=== PATIENT | female | born 1980 | race Caucasian/White ===

== ENCOUNTER 2022-08-02 09:45 | Emergency (ER) | payer OTHER, SELFPAY ==
[2022-08-02] VITALS (17 sets, daily range): BP systolic 94–122; BP diastolic 64–80; PULSE 76–97; RESP 18; TEMP 37; O2SAT 97–99; BMI 21.6
--- NOTE | 2022-08-02 10:25 | ED.CHESTPAIN ---
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 Patient has had ongoing chest pain since July 22. She states that morning she awoke with chest pain and she shows this to be the left anterior upper chest wall. She states that pain was present all day and that she tried to hydrate. After that she had pain on and off and occasionally at night. It does not appear to be associated we activity. Walking does not appear to bring on the pain and she does not really recognize that stress or activity makes it worse. She notes that taking a deep breath does not seem to affect it. She states that the pain has returned intermittent. She notes that in the OR they actually put her on a monitor and did not see anything unusual except perhaps 1 of the nurses thought her T-waves were flattened. Patient has not had any recent travel, calf tenderness or swelling, history of DVT, shortness of breath cough cold congestion or fever. Denies as she has IUD in place. Does note that she has had a small amount of drainage down the back of her throat but it has not been sore and she has not had a cough. She cannot recall any injury or excessive work of late. When pain occurs patient does not have relief with leaning forward. Again, does not appear to be related to activity and it is random in occurrence. Related Data Allergies Allergy/AdvReac Type Severity Reaction Status Date / Time No Known Drug Allergies Allergy Verified 08/02/22 09:49 Review of Systems Status of ROS Reports: 10 or more systems reviewed and unremarkable except as noted in History and below Const Denies: fever or chills Eyes Denies: change in vision ENMT Denies: throat pain, throat swelling or hoarseness Cardio Reports: chest pain; Denies: palpitations, edema, swelling of feet/ankles, lightheadedness or shortness of breath with exertion Resp Denies: shortness of breath GI Denies: abdominal pain, nausea, vomiting or diarrhea Denies: painful urination or urinary frequency Musculo Denies: back pain Integ/Breast Denies: rash or itching Neuro Denies: headache, numbness in extremities or weakness in extremities Allergy/Immuno Denies: throat swelling [facility] Social History Smoking Status: Never smoker Do you use any of these nicotine containing products: None Second hand tobacco smoke exposure: No How often do you have a drink containing alcohol: monthly or less How many standard drinks containing alcohol do you have on a typical day: 1 or 2 How often do you have six or more drinks on one occasion: Never AUDIT-C Alcohol total score: 1 Non-prescribed substance use: denies use service: No Exam Narrative Exam Narrative: Patient is very pleasant. She is comfortably reading a book in room 8. Alert and oriented. Nontoxic in appearance. EOM is full it face symmetrical. Speech is normal without slurring. Neck is supple no lymphadenopathy. Heart with regular rate and rhythm. I did not auscultate murmur or rub. I do have patient lean forward and there is no evidence of a rub. Abdomen is soft nontender. Palpation over left lateral chest wall upper lateral pectoral muscle does healed mild tenderness with palpation. No pain with palpation down sternum. No CVA tenderness with percussion. Palpitation down thoracic and lumbar spine does not yield tenderness. I did try to push on ribcage and it did not increase discomfort. Lower extremities without edema. Calves are without any tenderness. Const Vital Signs, click to edit/add: Vital Signs - 24 hr 08/02/22 09:49 08/02/22 10:59 08/02/22 11:00 Temperature 98.6 F Pulse Rate 78 77 Pulse Rate [Pulse Oximeter] 97 Respiratory Rate 18 Blood Pressure Blood Pressure [Left Upper Arm] 122/80 Pulse Oximetry 97 98 98 Oxygen Delivery Method Room Air 08/02/22 11:01 08/02/22 11:02 08/02/22 11:30 Temperature Pulse Rate 80 76 83 Pulse Rate [Pulse Oximeter] Respiratory Rate Blood Pressure 105/64 Blood Pressure [Left Upper Arm] Pulse Oximetry 99 99 99 Oxygen Delivery Method 08/02/22 11:31 08/02/22 11:32 08/02/22 12:00 Temperature Pulse Rate 77 79 82 Pulse Rate [Pulse Oximeter] Respiratory Rate Blood Pressure 116/74 Blood Pressure [Left Upper Arm] Pulse Oximetry 99 99 99 Oxygen Delivery Method 08/02/22 12:01 08/02/22 12:02 08/02/22 12:30 Temperature Pulse Rate 83 81 76 Pulse Rate [Pulse Oximeter] Respiratory Rate Blood Pressure 106/66 Blood Pressure [Left Upper Arm] Pulse Oximetry 99 99 97 Oxygen Delivery Method 08/02/22 12:31 08/02/22 13:00 08/02/22 13:01 Temperature Pulse Rate 82 80 89 Pulse Rate [Pulse Oximeter] Respiratory Rate Blood Pressure 98/65 94/75 Blood Pressure [Left Upper Arm] Pulse Oximetry 97 97 97 Oxygen Delivery Method 08/02/22 13:30 08/02/22 13:31 Temperature Pulse Rate 81 79 Pulse Rate [Pulse Oximeter] Respiratory Rate Blood Pressure 102/67 Blood Pressure [Left Upper Arm] Pulse Oximetry 97 98 Oxygen Delivery Method Course Course Hospital Course: Patient is presenting with intermittent left anterior chest wall pain over the past 2 weeks. Does not appear to be related to activity and she cannot do anything to bring it on. At this time differential diagnosis includes but is not limited to PE, chest wall pain, angina, pneumonia, muscular strain, anxiety. We will order chest x-ray, D-dimer, CBC, comprehensive panel, troponin, CRP, urinalysis and an EKG. Will keep patient on color television console monitor at this time Reevaluation(s) Reevaluation #1: During patient's stay she had no unusual rhythms noted on color television console monitor. I did inform her that her labs are coming back as normal and that initial troponin and EKG are reassuring. Will try 1 dose Toradol 15 mg IV Reevaluation #2: Patient does not think she is markedly improved. She continues to be reading her book and resting comfortably. Second EKG and troponin are also negative. Re-examination shows that she does have tenderness with palpation in the upper chest wall and when I extend her arm she does have a stretching sensation across that area. Vital Signs Vital signs: Initial Vital Signs Temperature 98.6 F 08/02/22 09:49 Temperature Source Temporal Artery Scan 08/02/22 09:49 Pulse Rate 97 08/02/22 09:49 Pulse Rhythm 08/02/22 09:49 Respiratory Rate 18 08/02/22 09:49 Blood Pressure 122/80 08/02/22 09:49 Blood Pressure Mean 94 08/02/22 09:49 Blood Pressure Position Supine 08/02/22 09:49 Pulse Oximetry 97 08/02/22 09:49 Oxygen Delivery Method 08/02/22 09:49 Vital Signs Temperature 98.6 F 08/02/22 09:49 Pulse Rate 97 08/02/22 09:49 Respiratory Rate 18 08/02/22 09:49 Blood Pressure 122/80 08/02/22 09:49 Pulse Oximetry 97 08/02/22 09:49 Oxygen Delivery Method 08/02/22 09:49 Temperature 98.6 F 08/02/22 09:49 Pulse Rate 79 08/02/22 13:31 Respiratory Rate 18 08/02/22 09:49 Blood Pressure 102/67 08/02/22 13:31 Pulse Oximetry 98 08/02/22 13:31 Oxygen Delivery Method 08/02/22 09:49 MDM - Chest Pain MDM Narrative Medical decision making narrative: 1. Chest wall pain-I believe this is likely muscular in nature. At this time no evidence of an MA, cardiac ischemia, injury, PE with a negative D-dimer, pneumonia with a reassuring chest x-ray. Suggest stretching and icing of this area as needed. In spite of my very low suspicion of cardiac pain I would ask patient to follow-up with her primary MD to pursue a stress echo at this time. 2. Disposition-return as needed for worsening symptoms. Medical Records Data Attestation: I reviewed the patient's medical records. Lab Data Attestation: I reviewed the patient's lab results. Labs: Lab Results 08/02/22 08/02/22 08/02/22 Range/Units 10:46 10:50 10:50 WBC 7.43 (4.50-11.00) K/uL RBC 4.68 (4.00-5.20) m/uL Hgb 14.9 (12.0-16.0) gm/dL Hct 43.9 (33.0-51.0) % MCV 94 (80-100) fL MCH 32 (26-34) pg MCHC 34 (32-36) gm/dL RDW Coeff of Shama 12.0 (11.5-15.5) % Plt Count 246 (140-440) K/uL Neut % (Auto) 52.6 (42.0-72.0) % Lymph % (Auto) 35.7 (20-44) % [place] % (Auto) 9.0 (0.0-11.0) % Eos % (Auto) 2.0 (0.0-7.0) % Baso % (Auto) 0.7 (0.0-3.0) % Neut # (Auto) 3.91 (1.7-7.0) K/uL Lymph # (Auto) 2.65 (0.90-2.90) K/uL [place] # (Auto) 0.70 (0.00-0.90) K/UL Eos # (Auto) 0.15 (0.00-0.50) K/uL Baso # (Auto) 0.05 (0.00-0.30) K/uL D-Dimer Quant (PE/DVT) (0.00-0.50) ug/ml Sodium 139 (135-149) mmol/L Potassium 3.9 (3.6-5.1) mmol/L Chloride 105 (96-114) mmol/L Carbon Dioxide 28 (20-32) mmol/L BUN 15 (5-24) mg/dL Creatinine 1.0 (0.5-1.5) mg/dL Estimated Creat Clear 73.45 Estimated GFR 73 ml/min Glucose 92 (60-115) mg/dL Calcium 9.2 (8.4-10.6) mg/dL Total Bilirubin 0.6 (0.1-1.5) mg/dL AST 21 (12-35) U/L ALT 16 (4-35) U/L Alkaline Phosphatase 94 (40-150) U/L Total Protein 8.2 (6.0-8.3) g/dL Albumin 4.6 (3.3-5.0) g/dL Urine Color Yellow (Yellow) Urine Appearance Clear (Clear) Urine pH 7.0 (5.0-8.5) Ur Specific Lynn 1.015 (1.000-1.030) Urine Protein Negative (Negative) Urine Glucose (UA) Negative (Negative) Urine Ketones Negative (Negative) Urine Blood Negative (Negative) Urine Nitrite Negative (Negative) Urine Bilirubin Negative (Negative) Urine Urobilinogen 0.2 (0.2-1.0) Ur Leukocyte Esterase Negative (Negative) Urine RBC 0-2 (0-2) Urine WBC 0-2 (0-5) Ur Squamous Epith Cells None (None-Few) Urine Bacteria None (None) Urine HCG, Qual Negative (Negative) SARS-CoV-2 (PCR) (Negative) Influenza Type A (PCR) (Negative) Influenza Type B (PCR) (Negative) POC Troponin I (0.01-0.04) ng/ml 08/02/22 08/02/22 08/02/22 Range/Units 10:50 10:50 10:50 WBC (4.50-11.00) K/uL RBC (4.00-5.20) m/uL Hgb (12.0-16.0) gm/dL Hct (33.0-51.0) % MCV (80-100) fL MCH (26-34) pg MCHC (32-36) gm/dL RDW Coeff of Shama (11.5-15.5) % Plt Count (140-440) K/uL Neut % (Auto) (42.0-72.0) % Lymph % (Auto) (20-44) % [place] % (Auto) (0.0-11.0) % Eos % (Auto) (0.0-7.0) % Baso % (Auto) (0.0-3.0) % Neut # (Auto) (1.7-7.0) K/uL Lymph # (Auto) (0.90-2.90) K/uL [place] # (Auto) (0.00-0.90) K/UL Eos # (Auto) (0.00-0.50) K/uL Baso # (Auto) (0.00-0.30) K/uL D-Dimer Quant (PE/DVT) < 0.27 (0.00-0.50) ug/ml Sodium (135-149) mmol/L Potassium (3.6-5.1) mmol/L Chloride (96-114) mmol/L Carbon Dioxide (20-32) mmol/L BUN (5-24) mg/dL Creatinine (0.5-1.5) mg/dL Estimated Creat Clear Estimated GFR ml/min Glucose (60-115) mg/dL Calcium (8.4-10.6) mg/dL Total Bilirubin (0.1-1.5) mg/dL AST (12-35) U/L ALT (4-35) U/L Alkaline Phosphatase (40-150) U/L Total Protein (6.0-8.3) g/dL Albumin (3.3-5.0) g/dL Urine Color (Yellow) Urine Appearance (Clear) Urine pH (5.0-8.5) Ur Specific Lynn (1.000-1.030) Urine Protein (Negative) Urine Glucose (UA) (Negative) Urine Ketones (Negative) Urine Blood (Negative) Urine Nitrite (Negative) Urine Bilirubin (Negative) Urine Urobilinogen (0.2-1.0) Ur Leukocyte Esterase (Negative) Urine RBC (0-2) Urine WBC (0-5) Ur Squamous Epith Cells (None-Few) Urine Bacteria (None) Urine HCG, Qual (Negative) SARS-CoV-2 (PCR) Negative SARS-CoV-2 (Negative) Influenza Type A (PCR) Negative PCR FLU A (Negative) Influenza Type B (PCR) Negative PCR FLU B (Negative) POC Troponin I 0.00 L (0.01-0.04) ng/ml 08/02/22 Range/Units 12:25 WBC (4.50-11.00) K/uL RBC (4.00-5.20) m/uL Hgb (12.0-16.0) gm/dL Hct (33.0-51.0) % MCV (80-100) fL MCH (26-34) pg MCHC (32-36) gm/dL RDW Coeff of Shama (11.5-15.5) % Plt Count (140-440) K/uL Neut % (Auto) (42.0-72.0) % Lymph % (Auto) (20-44) % [place] % (Auto) (0.0-11.0) % Eos % (Auto) (0.0-7.0) % Baso % (Auto) (0.0-3.0) % Neut # (Auto) (1.7-7.0) K/uL Lymph # (Auto) (0.90-2.90) K/uL [place] # (Auto) (0.00-0.90) K/UL Eos # (Auto) (0.00-0.50) K/uL Baso # (Auto) (0.00-0.30) K/uL D-Dimer Quant (PE/DVT) (0.00-0.50) ug/ml Sodium (135-149) mmol/L Potassium (3.6-5.1) mmol/L Chloride (96-114) mmol/L Carbon Dioxide (20-32) mmol/L BUN (5-24) mg/dL Creatinine (0.5-1.5) mg/dL Estimated Creat Clear Estimated GFR ml/min Glucose (60-115) mg/dL Calcium (8.4-10.6) mg/dL Total Bilirubin (0.1-1.5) mg/dL AST (12-35) U/L ALT (4-35) U/L Alkaline Phosphatase (40-150) U/L Total Protein (6.0-8.3) g/dL Albumin (3.3-5.0) g/dL Urine Color (Yellow) Urine Appearance (Clear) Urine pH (5.0-8.5) Ur Specific Lynn (1.000-1.030) Urine Protein (Negative) Urine Glucose (UA) (Negative) Urine Ketones (Negative) Urine Blood (Negative) Urine Nitrite (Negative) Urine Bilirubin (Negative) Urine Urobilinogen (0.2-1.0) Ur Leukocyte Esterase (Negative) Urine RBC (0-2) Urine WBC (0-5) Ur Squamous Epith Cells (None-Few) Urine Bacteria (None) Urine HCG, Qual (Negative) SARS-CoV-2 (PCR) (Negative) Influenza Type A (PCR) (Negative) Influenza Type B (PCR) (Negative) POC Troponin I 0.00 L (0.01-0.04) ng/ml Imaging Data Chest x-ray: Attestation: I have reviewed the pertinent imaging results. My impression: No obvious infiltrate. Radiologist's impression: HEART AND MEDIASTINUM: The heart size is normal. The mediastinal contour appears normal for patient age. LUNGS AND PLEURAL SPACES: The lungs appear normal.The pleural spaces are unremarkable. OSSEOUS STRUCTURES: Age-appropriate appearance. No acute focal finding. IMPRESSION: No evidence of active pulmonary disease. ECG Data Attestation: I personally reviewed and interpreted this ECG as follows: ECG interpretation date: 08/02/22 Interpretation: EKG 1. Shows sinus rhythm at a rate of [address] or T-wave changes. EKG 2. By my read shows sinus rhythm at a rate of [address] or T-wave changes. Good R-wave progression is noted and QT interval is normal. Discharge Plan Discharge Clinical Impression: Atypical chest pain Patient Disposition: Home, Self-Care Condition: Unchanged Additional Instructions: Recommend follow-up with your primary MD to be set up for stress test. Ibuprofen or Tylenol as needed for discomfort. Return to the ER for worsening pain, shortness of breath, onset of new symptoms and as needed. Follow Up/Referrals: Jerome Irizarry MD [Primary Care Provider] - Stand Alone Forms: [employer] Info Instructions
--- NOTE | 2022-08-02 10:37 | CRLHL7_ITS ---
For Patients: As a result of the Cures Act, medical imaging exams and procedure reports are released immediately into your electronic medical record. You may view this report before your referring provider. If you have questions, please contact your health care provider. INDICATION: Chest pain COMPARISON: None TECHNIQUE: Single view study FINDINGS: TUBES AND LINES: None. HEART AND MEDIASTINUM: The heart size is normal. The mediastinal contour appears normal for patient age. LUNGS AND PLEURAL SPACES: The lungs appear normal.The pleural spaces are unremarkable. OSSEOUS STRUCTURES: Age-appropriate appearance. No acute focal finding. IMPRESSION: No evidence of active pulmonary disease. Dictated by Shay Brock MD @ 08/02/2022 12:40:05 PM (Electronically Signed)
--- NOTE | 2022-08-02 10:50 | ED.NURSE ---
design transferrer swabbed
[2022-08-02 11:03] LABS: Basophils Absolute Auto 0.05 K/uL (0.00-0.30); Basophils Percent Auto 0.7 % (0.0-3.0); Eosinophils Absolute Auto 0.15 K/uL (0.00-0.50); Hematocrit 43.9 % (33.0-51.0); Hemoglobin* 14.9 gm/dL (12.0-16.0); Lymphocytes Absolute Auto 2.65 K/uL (0.90-2.90); Lymphocytes Percent Auto 35.7 % (20-44); Mean Corpuscular HGB Conc 34 gm/dL (32-36); Mean Corpuscular Hemoglobin 32 pg (26-34); Mean Corpuscular Volume 94 fL (80-100); Neutrophils Absolute Auto 3.91 K/uL (1.7-7.0); Neutrophils Percent Auto 52.6 % (42.0-72.0); Platelet Count* 246 K/uL (140-440); Red Blood Count 4.68 m/uL (4.00-5.20); White Blood Count* 7.43 K/uL (4.50-11.00)
[2022-08-02 11:05] LABS: Slide Review Reflex No
[2022-08-02 11:09] LABS: Appearance Urine Clear (Clear); Bilirubin Urine Negative (Negative); Blood Urine Negative (Negative); Color Urine Yellow (Yellow); Glucose Urine Negative (Negative); Ketones Urine Negative (Negative); Leukocyte Esterase Urine Negative (Negative); Nitrite Urine Negative (Negative); Protein Urine Negative (Negative); Specific Gravity Urine 1.015 (1.000-1.030); Urobilinogen Urine 0.2 (0.2-1.0)
[2022-08-02 11:15] LABS: Albumin* 4.6 g/dL (3.3-5.0); Chloride* 105 mmol/L (96-114); Sodium* 139 mmol/L (135-149)
[2022-08-02 11:16] LABS: Potassium* 3.9 mmol/L (3.6-5.1)
[2022-08-02 11:18] LABS: Alkaline Phosphatase* 94 U/L (40-150); Aspartate Amino Transferase* 21 U/L (12-35); Bilirubin Total* 0.6 mg/dL (0.1-1.5); Blood Urea Nitrogen* 15 mg/dL (5-24); Carbon Dioxide* 28 mmol/L (20-32); Est. Creatinine Clearance* 73.45; Estimated Glomerular Filt Rate 73 ml/min; Total Protein* 8.2 g/dL (6.0-8.3)
[2022-08-02 11:19] LABS: Alanine Aminotransferase* 16 U/L (4-35); Calcium* 9.2 mg/dL (8.4-10.6); Glucose* 92 mg/dL (60-115)
[2022-08-02 11:23] LABS: D Dimer Quantitative* < 0.27 ug/ml (0.00-0.50)
[2022-08-02 11:25] LABS: RBC Urine 0-2 (0-2); WBC Urine 0-2 (0-5)
[2022-08-02 11:46] LABS: PCR FLU A Negative PCR FLU A (Negative); PCR FLU B Negative PCR FLU B (Negative); SARS PCR* Negative SARS-CoV-2 (Negative)
[2022-08-02 11:57] LABS: Ur HCG Qualitative* Negative (Negative)
[2022-08-02] MEDS: KETOROLAC 15 MG/ML inj IVP (12:24)
== END 2022-08-02 14:15 | disposition home or self-care (01) ==
PROVIDERS: Emergency Provider Family Medicine; PCP Family Medicine
DX: R07.89 Other chest pain (principal)
CPT/HCPCS: 36415; 71045; 80053; 81001; 81025; 84484; 85025; 85379; 87631; 93005; 96372; 99284; J1885

== ENCOUNTER 2022-08-15 12:42 | Outpatient (CLI) | payer OTHER, SELFPAY ==
[2022-08-15 14:04] VITALS: BP 126/52; PULSE 108; RESP 16
--- NOTE | 2022-08-15 15:39 | P.STN_ITS ---
Stress Test Note Date Date Seen: 08/15/22 Date of test: 08/15/22 Providers Referring provider: Nickie Solorzano Primary care provider: Nickie Solorzano Stress test physician: Brown Quarles Stress Test Note Stress test ordered: Stress Echo Indication for test: Chest pain Stress test medicine: [facility] Results discussion: This pleasant lady presents for the above test after discussion the risks benefits and side effects she would like to proceed and also review of the cardiac stress test medical history form. Patient was exercised on the Nirmal protocol for 10 minutes, test is terminated because of attainment of maximum heart rate common fulfillment of protocol maximum heart rate was 170 with a maximum blood pressure 152 and 58, conditioning was felt to be excellent, during this test there is no significant ST wave changes suggestive of ischemia. There is no dysrhythmias, she recovered normally in the recovery period. Impression: Negative electrographic portion of stress echo, conditioning was felt to be excellent, Follow up suggested: Await echo images clinical correlation with these will be needed, patient left this testing facility in excellent condition
== END 2022-08-15 12:43 | disposition home or self-care (01) ==
PROVIDERS: PCP Family Medicine; Visit Provider Family Medicine
DX: R07.89 Other chest pain (principal)
CPT/HCPCS: 93016; 93325; 93351

== ENCOUNTER 2023-01-24 16:25 | Outpatient (CLI) | payer OTHER, SELFPAY | END 2023-01-24 16:26 | disposition home or self-care (01) | LOC: NFLDREF 16:28 | PROVIDERS: PCP Family Medicine; Visit Provider Internal Medicine | DX: N64.52 Nipple discharge (principal) | CPT/HCPCS: 84146 ==

== ENCOUNTER 2023-02-08 09:33 | Outpatient (CLI) | payer OTHER, SELFPAY ==
--- NOTE | 2023-02-08 09:45 | CRLHL7_ITS ---
For Patients: As a result of the Cures Act, medical imaging exams and procedure reports are released immediately into your electronic medical record. You may view this report before your referring provider. If you have questions, please contact your health care provider. DIGITAL DIAGNOSTIC BILATERAL MAMMOGRAM USING TOMOSYNTHESIS AND COMPUTER-AIDED DETECTION RIGHT BREAST ULTRASOUND CLINICAL HISTORY: RIGHT breast discharge. COMPARISON: None. TECHNIQUE: Digital BILATERAL mammogram in four projections. Tomosynthesis and CAD utilized. Real-time ultrasound imaging of RIGHT breast with imaging documentation. BREAST COMPOSITION: The breasts are heterogeneously dense, which may obscure small masses. FINDINGS: 3D CC/MLO BILATERAL mammogram images submitted. Normal fibroglandular tissue. No suspicious masses or architectural distortion. No adenopathy. No suspicious calcifications. Targeted RIGHT breast ultrasound performed behind the RIGHT nipple. Normal dense tissue is present. No duct ectasia or intraductal lesion. No solid mass or fibrocystic change. IMPRESSION: Normal BILATERAL mammograms and normal targeted RIGHT breast ultrasound. No evidence of papilloma or malignancy. RECOMMENDATIONS: Annual BILATERAL screening mammography. Results and recommendations discussed with the patient. BI-RADS Category 2: Benign A lay language report of this examination will be provided to the patient. Dictated by Jerome Worrell MD @ 02/08/2023 12:09:36 PM jj/Dictated by: Jerome Worrell MD @ 02/08/2023 12:09:00 PM (Electronically Signed)
--- NOTE | 2023-02-08 10:15 | CRLHL7_ITS ---
For Patients: As a result of the Cures Act, medical imaging exams and procedure reports are released immediately into your electronic medical record. You may view this report before your referring provider. If you have questions, please contact your health care provider. PLEASE SEE DIGITAL DIAGNOSTIC BILATERAL MAMMOGRAM PERFORMED SAME DAY CRL:desmond logan/Dictated by: Jerome Worrell MD @ 02/08/2023 12:08:00 PM (Electronically Signed)
== END 2023-02-08 09:34 | disposition home or self-care (01) ==
LOC: MAMMO 09:34
PROVIDERS: PCP Family Medicine; Visit Provider Internal Medicine
DX: N64.52 Nipple discharge (principal)
CPT/HCPCS: 76642; 77066; G0279

== ENCOUNTER 2023-02-21 10:05 | Outpatient (CLI) | payer OTHER, SELFPAY ==
--- NOTE | 2023-02-21 10:15 | CRLHL7_ITS ---
For Patients: As a result of the Century Cures Act, medical imaging exams and procedure reports are released immediately into your electronic medical record. You may view this report before your referring provider. If you have questions, please contact your health care provider. BILATERAL BREAST MRI WITHOUT AND WITH GADOLINIUM 02/21/2023 CLINICAL HISTORY: 42-year-old female with right nipple discharge. INDICATION FOR BREAST MRI: Problem-solving breast MRI. COMPARISON STUDIES: Mammogram and RIGHT breast ultrasound 02/08/2023. CONTRAST: 15 cc of Dotarem. TECHNIQUE: The patient was positioned prone using a breast coil. Multiple imaging sequences were obtained using 1-1.5 mm thick slices with no gap. The image sequences include T2-weighted STIR in the axial plane, T1-weighted nonfat-saturated gradient echo in the axial plane, pre- and post-contrast T1-weighted FLASH 3D with fat suppression in the axial plane, and T1-weighted FLASH high resolution 3D with fat suppression in the sagittal plane. Image post-processing was performed on a [employer] workstation. Complex 3D rendering including maximum intensity projections (MIPS) and volumetric renderings were obtained to optimize visualization of the extent of pathology and relationship to the nipple, skin, and chest wall. This aids in determining feasibility of breast conservation surgery. Subtraction, multiplanar reconstruction, mean curve determination, and angiogenesis mapping were also performed. The study was technically adequate. FINDINGS: Amount of Fibroglandular Tissue: Extreme fibroglandular tissue. Breast Background Enhancement: Mild. RIGHT Breast: No suspicious areas of enhancement. Scattered T2 hyperintense cyst. LEFT Breast: No suspicious areas of enhancement. Scattered T2 hyperintense cyst. Lymph Nodes: No adenopathy. IMPRESSIONS AND RECOMMENDATIONS: Benign, there is no MRI evidence of malignancy or other abnormality to explain nipple discharge. Clinical follow-up is recommended. Continue annual screening mammography. BI-RADS Category 2: Benign Dictated by Michelle Moore MD @ 02/26/2023 1:26:04 PM NORY/stephan DW/Dictated by: Michelle Moore MD @ 02/26/2023 1:26:00 PM (Electronically Signed)
== END 2023-02-21 10:06 | disposition home or self-care (01) ==
LOC: MRI 10:06
PROVIDERS: PCP Family Medicine; Visit Provider Internal Medicine
DX: N64.52 Nipple discharge (principal)
CPT/HCPCS: 77049; A9575

== ENCOUNTER 2023-10-17 10:09 | Outpatient (CLI) | payer OTHER, SELFPAY ==
--- OUTSIDE RECORDS SUMMARY | 2023-10-17 10:12 | XMS_ITS | Clinical Summary ---
Author Name Unknown Organization [employer] [facility] Address [place], [place] [address] Care Team Providers Care Graphic Design Intern Name Role Phone Evy Melton MD Primary Care Provider Allergies No known active allergies Medications Medication Sig Dispensed Refills Start Date End Date Status ibuprofen (ADVIL; MOTRIN) 600 mg tablet Take 1 tablet by mouth once daily. Maximum of 3200 mg in 24 hours. 0 11/02/2014 Active Active Problems Problem Noted Date Diagnosed Date Contraception, generic surveillance 02/06/2012 Cold sore 02/06/2012 Resolved Problems Problem Noted Date Diagnosed Date Resolved Date Supervision of normal first 07/15/2013 03/06/2014 Overview: It's a boy! TDaP 11/03/2013 GBS positive HEMOGLOBIN (g/dL) Date Value 12/15/2013 13.0 Immunizations Name Administration Dates Next Due DTP 03/22/1989, 7,12/25/1984,06/20/1983 ,04/19/1983 Hepatitis A (Adult) 12/30/2010 Hepatitis A (Peds) 01/14/2004 Hepatitis B (Peds) 08/29/2001,02/18/2001, 001 Inactivated Polio Vaccine 01/03/2011 Influenza, IIV3 (Age >=3 years) 02/18/2013 MMR 10/01/1995,12/25/1984 Meningococcal Vaccine (Menactra) 01/09/2002 Oral Polio Vaccine 03/22/1989,10/20/1986, 984,04/19/1983 Td (Age >=7 Years) 10/01/1995 Tdap 11/03/2013,04/23/2011,04/23/2010 ,12/12/2004 Typhoid (injectable) 01/03/2011 Family History Medical History Relation Name Comments Cancer Maternal Grandfather leukemi a Heart Disease Paternal Grandfather chf Other Paternal Grandfather copd Stroke Paternal Grandmother Relation Name Status Comments Maternal Grandfather Paternal Grandfather Paternal Grandmother Social History Tobacco Use Types Packs/Day Years Used Date Smoking Tobacco: Never Smokeless Tobacco: Never Tobacco Cessation:Counseling Given: Yes Alcohol Use Standard Drinks/Week Comments No 0 (1 standard drink = 0.6 oz pur e alcohol) very rare PHQ-2 Answer Date Recorded PHQ-2 Score 0 08/04/2018 Sex and Gender Information Value Date Recorded Sex Assigned at Not on file Gender Identity Not on file Sexual Orientation Not on file Obstetrics History Para Term AB IAB SAB Ectopic Multiple Livin g Live Births 1 1 1 1 Date Outcome GA Total Labor Labor/2nd/3rd Weight Sex Delivery Anes PTL Tracee A1 A5 Name Cl in 01/24 Term 41w 0d 3.74 kg (8 lb 4 oz) M Epidu ral Comments:System Genera crhistian. Please review and update details. Last Filed Vital Signs Vital Sign Reading Time Taken Comments Blood Pressure 102/69 11/06/2017 11:34 AM CDT Pulse 76 11/06/2017 11:34 AM CDT Temperature 36.8 ??C (98.3 ??F) 01/03/2016 2:33 PM CD T Respiratory Rate 16 02/16/2012 2:46 AM CDT Oxygen Saturation 99% 11/06/2017 11:34 AM CDT Inhaled Oxygen Concentration - - Weight 66 kg (145 lb 9.6 oz) 11/06/2017 11:34 AM CDT Height 168.6 cm (5' 6.38) 11/06/2017 11:34 AM C DT Body Mass Index 23.23 11/06/2017 11:34 AM CDT Plan of Treatment Health Maintenance Due Date Last Done Comments BMI (ht and wt on same day) for age 18+ 11/06/2018 11/06/2017, 08/18/2016, 07/17/2016, Additional history exists Depression screening for age 12+ 11/06/2018 11/06/2017, 08/18/2016, 06/30/2016, Additional history exists COVID-19 vaccine series (3 2022-24 season) 2023 03/12/2021, 02/19/2021 Tetanus booster 11/04/2023 11/03/2013, 04/05, 04/23/2010, Additional history exists Influenza for age 9-49 02/03/2024 02/18/2013 Pap test for age 21-65 09/02/2026 , 09/02/2021, 01/10/2019, Additional history exists HIV for age 15-65 Completed 06/30/2013 Hepatitis C screening for age 18-79 Completed 06/30/2013 Tdap Completed 11/03/2013, 04/05, 04/23/2010, Additional history exists Pneumococcal series for age 6-64 Aged Out No longer eligible based on patient's age to complete this topic Procedures Procedure Name Priority Date/Time Associated Diagnosis Comments HPV THIN PREP Routine 09/02/2021 1:30 PM CDT ANTI HIV 1/2 Routine 06/30/2013 6:03 PM CUSTOMER ACCOUNT MANAGER ANTI HCV Routine 06/30/2013 6:03 PM CUSTOMER ACCOUNT MANAGER from Last 3 Months or Most Recently Relevant to Health Maintenance Results * HPV HIGH RISK (09/02/2021 1:30 PM CDT) TYPE 16 Negative Negative 09/07/2021 12:10 PM CDT [facility] TYPE 18 Negative Negative 09/07/2021 12:10 PM CDT [facility] OTHER HIGH RISK TYPES Negative Negative 09/07/2021 12:10 PM CDT [facility] Other (Cervical/Vagina l) 09/02/2021 1:30 PM CDT 09/06/2021 8:36 AM CDT [facility] - 09/07/2021 12:10 PM CDT HPV types 16, 18, 31, 33, 35, 39, 45, 51, 52, 56, 58, 59, 66 and 68 DNA were undetectable or below the pre-set threshold. Methodology: Joanna Stephen 4800 HPV Test Jerome Irizarry MD MICROBIOLOGY [facility] [address] [place] [address], * ANTI HCV (06/30/2013 6:03 PM CUSTOMER ACCOUNT MANAGER) ANTI HCV Non-reacti ve [facility] Blood specimen (specimen) BLOOD SPECIMEN / Unknown 06/30/2013 6:03 PM CUSTOMER ACCOUNT MANAGER 06/30/2013 5:55 PM CUSTOMER ACCOUNT MANAGER Scarlett GARCIA SEND OUTS [facility] INTERNAL ZIP [id number] [place] [address] * ANTI HIV 1/2 (06/30/2013 6:03 PM CUSTOMER ACCOUNT MANAGER) ANTI HIV 1/2 Non-reacti ve [facility] Blood specimen (specimen) BLOOD SPECIMEN / Unknown 06/30/2013 6:03 PM CUSTOMER ACCOUNT MANAGER 06/30/2013 5:55 PM CUSTOMER ACCOUNT MANAGER Scarlett GARCIA S[employer] OUTS [facility] INTERNAL ZIP [phone] [place] [address] from Last 3 Months or Most Recently Relevant to Health Maintenance Care Teams Graphic Design Intern Relationship Specialty Start Date End Date Evy Melton MD [address] [place] [address] PCP - General Family Practice 01/12/14
== END 2023-10-17 10:10 | disposition home or self-care (01) ==
PROVIDERS: PCP Family Medicine; Visit Provider Obstetrics & Gynecology
DX: Z13.220 Encounter for screening for lipoid disorders (principal)
CPT/HCPCS: 80061

== ENCOUNTER 2024-02-12 15:31 | Outpatient (CLI) | payer OTHER, SELFPAY ==
--- OUTSIDE RECORDS SUMMARY | 2024-02-12 15:33 | XMS_ITS | Clinical Summary ---
Author Organization [facility] Address [place], [place] [address] Care Team Providers Care Clinical Specialist Vascular Name Role Phone Evy Melton MD Primary [...] Date Supervision of normal first 07/15/2013 03/06/2014 Overview (12/17/2013): It's a boy! TDaP 11/03/2013 GBS positive [...] Outcome GA Total Labor Labor/2nd/3rd Weight Sex Type Anes PTL Tracee A1 A5 Name Clin 014 Term 41w 0d 3.74 kg (8 lb 4 oz) M Epidura l Comments:System Genera christian. Please review and update details. Last Filed [...] 11/06/2018 11/06/2017, 08/18/2016, 06/30/2016, Additional history exists Tetanus booster 11/04/2023 11/03/2013, 04/05, 04/23/2010, Additional history exists COVID-19 vaccine series (2022- season) 2024 03/12/2021, 02/19/2021 Influenza for age 9-49 02/03/2024 02/18/2013 Pap [...] ANTI HIV 1/2 Routine 06/30/2013 6:03 PM CHILI MAKER ANTI HCV Routine 06/30/2013 6:03 PM CHILI MAKER from Last 3 Months or Most Recently Relevant to Health Maintenance Results * HPV HIGH RISK (09/02/2021 1:30 PM CDT) TYPE 16 Negative Negative 09/07/2021 12:10 PM CDT [facility] TYPE 18 Negative Negative 09/07/2021 12:10 PM CDT [facility] LAB[facility] OTHER HIGH RISK TYPES Negative Negative 09/07/2021 12:10 PM CDT [facility] Other (Cervical/Vagina l) 09/02/2021 1:30 PM CDT 09/06/2021 8:36 AM CDT [facility] 09/07/2021 12:10 PM CDT HPV types 16, 18, 31, 33, 35, 39, 45, 51, 52, 56, 58, 59, 66 and 68 DNA were undetectable or below the pre-set threshold. Methodology: Joanna Stephen 4800 HPV Test Jerome Irizarry MD MICROBIOLOGY [facility]-CENTRAL LABORATORY [address] [place] [address], * ANTI HCV (06/30/2013 6:03 PM CHILI MAKER) ANTI HCV Non-reacti ve [facility] Blood specimen (specimen) BLOOD SPECIMEN / Unknown 06/30/2013 6:03 PM CHILI MAKER 06/30/2013 5:55 PM CHILI MAKER Scarlett GARCIA SEND OUTS [facility] INTERNAL ZIP [address] [place] [id number] * ANTI HIV 1/2 (06/30/2013 6:03 PM CHILI MAKER) ANTI HIV 1/2 Non-reacti ve [facility] Blood specimen (specimen) BLOOD SPECIMEN / Unknown 06/30/2013 6:03 PM CHILI MAKER 06/30/2013 5:55 PM CHILI MAKER Scarlett GARCIA SEND OUTS [facility] INTERNAL ZIP [phone] [place] [id number] from Last 3 Months or Most Recently Relevant to Health Maintenance Care Teams Clinical Specialist Vascular Relationship Specialty Start Date End Date Evy Melton MD [address] [place] [address] PCP - General Family Practice 01/12/14
--- NOTE | 2024-02-12 15:40 | CRLHL7_ITS ---
For Patients: As a result of the Century Cures Act, medical imaging exams and procedure reports are released immediately into your electronic medical record. You may view this report before your referring provider. If you have questions, please contact your health care provider. BILATERAL SCREENING MAMMOGRAM WITH COMPUTER-AIDED DETECTION AND TOMOSYNTHESIS TECHNIQUE: CC and MLO views were obtained. These mammographic images have been obtained using full-field digital technique. These mammographic images were interpreted with the benefit of computer-aided detection. Breast Tomosynthesis was used in this interpretation. COMPARISON FILM: 02/08/23. FINDINGS: The breasts are extremely dense, which lowers the sensitivity of mammography. IMPRESSION: There is no radiographic evidence for malignancy. ASSESSMENT: BI-RADS Category 2: Benign RECOMMENDATION: Routine screening mammogram in 1 year. A lay language report of this examination will be provided to the patient. Jerome Worrell M.D. Diagnostic Radiologist [email or web address] SP/Dictated by: Jerome Worrell MD @ 02/14/2024 11:22:00 AM (Electronically Signed)
== END 2024-02-12 15:32 | disposition home or self-care (01) ==
LOC: MAMMO 15:32
PROVIDERS: PCP Family Medicine; Visit Provider Obstetrics & Gynecology
DX: Z12.31 Encounter for screening mammogram for malignant neoplasm of breast (principal); R92.2 Inconclusive mammogram
CPT/HCPCS: 77063; 77067

== ENCOUNTER 2025-02-13 14:55 | Outpatient (CLI) | payer OTHER, SELFPAY ==
--- NOTE | 2025-02-13 15:00 | CRLHL7_ITS ---
For Patients: As a result of the Century Cures Act, medical imaging exams and procedure reports are released immediately into your electronic medical record. You may view this report before your referring provider. If you have questions, please contact your health care provider. INDICATION: BILATERAL SCREENING MAMMOGRAM, ASYMPTOMATIC 44 Y/O FEMALE COMPARISON: 02/12/2024, 02/21/2023, 02/08/2023 TECHNIQUE: Digital mammogram in CC and MLO projections including computer-aided detection (CAD) and tomosynthesis. BREAST COMPOSITION: The breasts are heterogeneously dense, which may obscure small masses. FINDINGS: No suspicious findings. ASSESSMENT: BI-RADS 2 Benign RECOMMENDATION: Annual screening mammogram. A lay language report of this examination will be provided to the patient. Dictated by: Jerome Worrell MD @ 02/16/2025 09:04:59 (Electronically Signed)
== END 2025-02-13 14:56 | disposition home or self-care (01) ==
LOC: MAMMO 14:57
PROVIDERS: PCP Family Medicine; Visit Provider Internal Medicine
DX: Z12.31 Encounter for screening mammogram for malignant neoplasm of breast (principal); R92.333 Mammographic heterogeneous density, bilateral breasts
CPT/HCPCS: 77063; 77067

== ENCOUNTER 2025-04-28 10:12 | Outpatient (CLI) | payer OTHER, SELFPAY ==
[2025-04-28 16:43] LABS: Bacterial Vaginosis* POSITIVE (Negative); Candida glab/krus NOT DETECTED (No Detected)
== END 2025-04-28 10:13 | disposition home or self-care (01) ==
PROVIDERS: PCP Family Medicine; Visit Provider Obstetrics & Gynecology
DX: Z11.3 Encounter for screening for infections with a predominantly sexual mode of transmission (principal); L65.9 Nonscarring hair loss, unspecified
CPT/HCPCS: 81513; 84443; 86592; 86703; 86704; 86706; 86803; 87340; 87481; 87491; 87591; 87661